=== PATIENT | male | born 1990 | race Two or more races ===

== ENCOUNTER 2016-06-05 12:13 | Inpatient (IN) | payer MEDICAID, OTHER ==
[2016-06-05] MEDS ORDERED: ONDANSETRON 4 MG/2ML 2 ML VIAL ONE ×2 (12:33→17:01)
[2016-06-05] MEDS ORDERED: HYDROMORPHONE HCL 1 MG/ML SYRINGE ONE (12:33)
[2016-06-05 12:54] LABS: ABSOLUTE NEUTROPHIL COUNT 17.5 K/mm3 (1.8-7.7); BASO # 0.1 K/mm3 (0.0-0.2); BASO % 0.3 % (0.2-1.0); EOS % 0.2 % (0.9-2.9); HEMATOCRIT 43.4 % (32.0-52.0); HEMOGLOBIN 14.7 gm/l (14.0-18.0); IMM NEUT # 0.1 K/mm3 (0-0.2); IMM NEUT% 0.5 % (0-1); LYMPH # 1.5 (1.0-4.8); LYMPH % 7.2 % (15-45); MEAN CELL VOLUME 88.4 fl (80.0-94.0); MEAN CORPUSCULAR HEMOGLOBIN 29.9 pg (27.0-31.0); MEAN CORPUSCULAR HGB CONC 33.9 g/dl (33.0-37.0); MEAN PLATELET VOLUME 8.7 fl (7.4-10.4); MONO # 0.9 (0.0-0.8); MONO % 4.3 % (4-12); NEUT % 87.5 % (43-75); PLATELET COUNT 290 K/mm3 (130-400); RED CELL DISTRIBUTION WIDTH 12.3 % (11.5-14.5)
[2016-06-05 13:16] LABS: ALB/GLOB RATIO 1.3 (>1.0); ALBUMIN 3.7 gm/dL (3.5-5.7); CALCIUM 8.8 mg/dL (8.6-10.3)
--- NOTE | 2016-06-05 13:28 | US ---
SCROTUM CONTENTS COMPARISON: None. HISTORY: Right scrotal pain and swelling. FINDINGS: Right testicle: Normal, 4.3 x 2.8 x 3.0 cm. Normal blood flow. Right epididymis: Normal, 9 x 8 x 8 mm. Normal blood flow. Right varicocele: None Right hydrocele: None. Right inguinal canal: Contains a loop of bowel which terminates in the upper scrotum. Left testicle: Normal, 3.8 x 2.1 x 2.9 cm. Normal blood flow. Left epididymis: Normal, 14 x 9 x 10 mm. Normal blood flow. Left varicocele: None Left hydrocele: None IMPRESSION: Right inguinal hernia containing a loop of intestine. Normal testes and epididymides. The report was sent to the emergency department electronic medical record system, 06/05/2016 at 13:30
[2016-06-05] MEDS ORDERED: HYDROMORPHONE HCL 0.5 MG/0.5 ML SYRINGE ONE (13:45)
[2016-06-05 13:56] LABS: BAND 9 % (0-10); BASOPHIL 0 % (0-1); EOSINOPHIL 0 % (1-3); LYMPHOCYTE 8 % (15-45); MONOCYTE 2 % (4-12); NEUTROPHILS 81 % (43-75); PLATELET ESTIMATE NORMAL (NORMAL); TOTAL CELLS COUNTED 100
[2016-06-05] MEDS ORDERED: CEFAZOLIN SODIUM 2 GRAM PREMIX 2 G in Premix (D5W) 100 ml 1 EACH IV PRN (14:16)
[2016-06-05] MEDS ORDERED: LACTATED RINGERS 1,000 ML ONE ×2 (14:18→16:37)
[2016-06-05] MEDS ORDERED: IOPAMIDOL 370 (76%) IV.SOLN 150 ML IV ONE (14:27)
[2016-06-05] MEDS ORDERED: FENTANYL 250 MCG/5 ML AMP ONE (14:47)
[2016-06-05] MEDS ORDERED: MIDAZOLAM HCL 1 MG/ML 2ML VIAL ONE (14:47)
[2016-06-05] MEDS ORDERED: BUPIVACAINE 0.5% W/EPI SDV 30 ML VIAL ONE (14:58)
[2016-06-05] MEDS ORDERED: LIDOCAINE 1% (PRES FREE) 30 ML VIAL ONE (14:59)
[2016-06-05] MEDS ORDERED: BUPIVACAINE 0.5% (PRES FREE) 30 ML VIAL ONE (15:09)
[2016-06-05] MEDS ORDERED: PROPOFOL 20 ML IV ONE (15:16)
[2016-06-05] MEDS ORDERED: ROCURONIUM BROMIDE 10 MG/ML DOSE IV ONE (15:16)
[2016-06-05 16:09] LABS: SPECIFIC GRAVITY 1.015 (1.001-1.030); URINE BILIRUBIN NEGATIVE (NEGATIVE); URINE BLOOD 4+ (NEGATIVE); URINE GLUCOSE (UA) NEGATIVE (NEGATIVE); URINE LEUKOCYTE ESTERASE 2+ (NEGATIVE); URINE NITRITE NEGATIVE (NEGATIVE); URINE PROTEIN TRACE (NEGATIVE); URINE UROBILINOGEN NORMAL (0-1 mg/dl)
[2016-06-05 16:13] LABS: URINE APPEARANCE SL CLOUDY; URINE COLOR YELLOW
[2016-06-05 16:19] LABS: URINE BACTERIA RARE; URINE EPITHELIAL CELLS 0-1 /hpf; URINE WBC 50-100 /hpf
[2016-06-05] MEDS ORDERED: CEFAZOLIN SODIUM 1,000 MG VIAL ONE (17:01)
[2016-06-05] MEDS ORDERED: DEXAMETHASONE SOD PHOS 4 MG/1 ML VIAL ONE (17:01)
[2016-06-05] MEDS ORDERED: HYDROMORPHONE HCL 1 MG/ML SYRINGE IV PRN (17:41)
[2016-06-05] MEDS ORDERED: FENTANYL 100 MCG/2 ML VIAL IV PRN (17:41)
[2016-06-05] MEDS ORDERED: PROMETHAZINE HCL 25 MG/ML VIAL IM PRN (17:41)
[2016-06-05] MEDS ORDERED: NALOXONE HCL 0.4 MG/ML VIAL IV PRN (17:41)
[2016-06-05] MEDS ORDERED: ATROPINE SULFATE 0.4 MG/1 ML VIAL IV PRN (17:41)
[2016-06-05] MEDS ORDERED: LACTATED RINGERS 1,000 ML IV SCH (17:45)
[2016-06-05] MEDS ORDERED: HYDROMORPHONE HCL 2 MG/ML SYRINGE ONE (17:50)
--- NOTE | 2016-06-05 18:47 | PCMBPN ---
Brief Post Op Note: Date of Procedure: 06/05/16 Preoperative Diagnosis: 1. Incarcerated right inguinal hernia Postoperative Diagnosis: 1. Right scrotal pain, possible torsion Procedure: Right inguinal hernia repair Surgeon: Karina Warner MD Assist:Candice Tidwell Anesthesia: General Findings: see dictation Condition: stable Complications: none IV Fluids: see anesthesia report Urine Output: not recorded Estimated Blood Loss: 5 mLs Tourniquet Time: N/A Specimens: N/A Implants: 3x6 prolene mesh cut to fit Drains: [N/A]
[2016-06-05] MEDS ORDERED: MENTHOL/CETYLPYRD 1 EACH LOZENGE PO PRN (18:53)
[2016-06-05] MEDS ORDERED: BLISTEX LIPSTICK 1 EACH TP PRN (18:53)
[2016-06-05] MEDS ORDERED: ONDANSETRON 4 MG/2ML 2 ML VIAL IV PRN (18:53)
--- NOTE | 2016-06-05 18:53 | PDOC1 ---
HPI: Date of Admission: 06/05/16 (originally seen at 1530) Chief Complaint: Right scrotal pain History of Present Illness: 25 y/o M with right scrotal pain and swelling since last night. He got up from sitting and he felt pain. Never had symptoms before. He complains of fever and chillls. No nausea/vomiting. After the pain started he went to bed and it woke him up at 3am and was much worse. He eventually came to the ED for evaluation. No other symptoms. PMH: healthy PSH: none Meds: none Allergies: NKDA SH: smokes tobacco, quit marijuana recently, denies EtOH use Family history: no known major illness - Review of Systems Denies Chest Pain, Denies Shortness of Breath, Denies Cough, Denies Sputum, Denies Nausea, Denies Vomiting, Denies Diarrhea, Denies Headache, Denies Other H&P Objective GS - Objective Laboratory Results - last 24 hr 06/05/16 06/05/16 12:40 15:57 WBC 20.0 H RBC 4.91 Hgb 14.7 Hct 43.4 MCV 88.4 MCH 29.9 MCHC 33.9 RDW 12.3 Plt Count 290 Neut % (Auto) 87.5 H Lymph % (Auto) 7.[address] [place] % (Auto) 4.3 Baso % (Auto) 0.3 Absolute Neuts (auto) 17.5 H Neutrophils % (Manual) 81 H Band Neutrophils % 9 Lymphocytes % (Manual) 8 L Monocytes % (Manual) 2 L Eosinophils % 0.2 L Eosinophils % (Manual) 0 L Basophils % 0 Platelet Estimate Normal Normal RBC Morphology Normal Sodium 132 L Potassium 3.7 Chloride 97 L Carbon Dioxide 29 Anion Gap 10 BUN 9 Creatinine 0.9 Estimated GFR 104 BUN/Creatinine Ratio 10 Glucose 156 H Calcium 8.8 Total Bilirubin 0.8 AST 13 ALT 15 Alkaline Phosphatase 88 Total Protein 6.5 Albumin 3.7 Globulin 2.8 Albumin/Globulin Ratio 1.3 Urine Color Yellow Urine Appearance Sl cloudy Urine pH 6.0 Ur Specific Rousseau 1.015 Urine Protein Trace Urine Glucose (UA) Negative Urine Ketones Negative Urine Blood 4+ Urine Nitrite Negative Urine Bilirubin Negative Urine Urobilinogen Normal Ur Leukocyte Esterase 2+ Urine RBC 2-5 Urine WBC 50-100 Ur Epithelial Cells 0-1 Urine Bacteria Rare % Immature Granulocyt 0.5 General: Alert, Oriented x3, Cooperative, No Acute Distress HEENT: Atraumatic, PERRLA, EOMI, Mucous membr. moist/pink Lungs: Clear to Auscultation Bilaterally, Normal Air Movement Cardiovascular: Regular Rate and Rhythm, Normal S1, Normal S2. negative: Murmur Abdomen: Soft, Non-Distended, Normal Bowel Sounds Genitourinary: Other (Swollen red right scrotum and swollen right testicle. Large right cord with obvious swelling/mass) Skin: Normal Color, Warm, Dry, Intact Psych/Mental Status: Anxious, Other (tearful) - Assessment/ Plan (1) Incarcerated right inguinal hernia Current Visit: Yes Status: Acute Priority: High Code: K40.30US shows flow to testicle and Bowel into scrotal sac Has had symptoms since last night. No need to attempt to reduce in the ED Will take urgently to surgery. - Procedure, Risks, Alternatives, Question PARQ: I discussed the procedure of Right inguinal hernia repair with possible bowel resection if compromised. We discussed risks including bleeding, infection, injury and possible need to resect bowel. I addressed the patient's concerns and questions. The patient expressed understanding and willingness to proceed.
[2016-06-05] MEDS ORDERED: PUMP TUBING ONE (19:34)
[2016-06-05] MEDS: LACTATED RINGERS 1,000 ML IV SCH (19:40)
[2016-06-05 19:43] VITALS: BMI 21.9
[2016-06-05] MEDS: HYDROMORPHONE HCL 1 MG/ML SYRINGE IV PRN ×2 (19:52→22:03)
--- NOTE | 2016-06-05 21:09 | OP ---
LINDSAY SOTO [id number] DATE OF : 1990 DATE OF SERVICE: 06/05/2016 PREPROCEDURE DIAGNOSIS: Right inguinal incarcerated hernia. POSTPROCEDURE DIAGNOSIS: Right groin pain, possible right testicular torsion. SURGEON: Dr. Karina Warner SPECIAL ORDER JEWELER: LEIGH Burr ANESTHESIA: General. FINDINGS: The cord structure was very dense and hard. It was difficult actually to identify the separate structures very well. It was though, however, too small for bowel to be in there and when dissecting through it, it was clear that there was no bowel or hernia sac within this structure. Pushing on the floor revealed a little bit of weakness, but nowhere where there was an actual defect where bowel could slip through and be stuck. On the internal ring, there was no defect around that either where bowel could slip through, it was fully encased with tissue surrounding it, so I do not believe that there was any way that there was a hernia at this location. Just because of the ultrasound, I placed mesh at that site to prevent any sort of recurrence in case I was missing something. Ultrasound was done after the repair and there was blood flow to the testicle. TECHNIQUE: The patient was brought back to the operating room and placed under general anesthesia. The lower abdomen and groin area was prepped and draped in sterile surgical fashion. Local anesthetic was placed in the dermis and subcutaneous tissue and as a block at the superior iliac spine. A 15-blade scalpel was used to make an oblique incision over the inguinal region just above pubic tubercle. Electrocautery was used to cut through the subcutaneous tissue down to the level of the fascia. At first, I thought I was in the space, but it was just a very thickened Jimmy's fascia layer, and then I noticed that there was clearly still external oblique underneath me, so then I opened the external oblique with a 15-blade scalpel and extended that with Metzenbaum scissors. The inguinal nerve was protected and pushed aside. Hemostats were placed around the cut ends of external oblique and the nerve was kept to one side of that to protect it from the dissection, and then the cord structures were from the floor and from the pubic tubercle and a Napavine was placed around it. The cord itself was in a tight bundle, about 1 cm in diameter. The cremasteric fibers were pulled apart. It was almost like everything was fused together, but I continued to tease things apart. It was clear there was no bowel within this, there were blood vessels though, and there was clearly the spermatic cord, it just did not want to separate that well. There was clearly no hernia sac though, and I continued to clear my way through it just to make sure that there was nothing that I was missing, but it was clear there was no bowel and no hernia sac in this. I continued looking around. I pressed in the indirect ring and I could not palpate a defect where my finger or even the tip of the finger could fit through. I felt like there was a fusion between the internal ring and the area of the cord, and there was nowhere bowel could fit through this. I felt the direct hernia spot. There was some laxity in the muscle here, but there was nothing where bowel would come through and get stuck at. I just felt that I could not figure-out how this hernia came through this spot, but because of what the ultrasound showed and because of the swelling in his scrotum and the redness, I felt like I had to put a mesh down, so I secured that to the muscle layer and along the inguinal ligament. Once that was secured in place, I irrigated the area, I placed the nerve back in the inguinal canal and I closed the external oblique, making sure I am not getting the nerve caught-up in it. I closed that with a running 2-0 Vicryl, then I closed Jimmy's layer with some interrupted 3-0 Vicryls, and then I closed the deep dermis with 3-0 Vicryl and closed the skin incision with a running 4-0 MONOCRYL. Steri-Strips were applied. Then we took the drapes down and I examined the scrotum. It looked like it was not as inflamed as preoperatively. Obviously the cord on this side was much thicker and hard compared to the other side and the testicle was much more swollen on the right side than the left, however, the redness of the scrotum was much improved. I got the ultrasound machine out and I could see blood flow going into and out of the testicle according to the ultrasound, and I looked at the other side and I compared the velocity at least grossly from one side to the other and it seemed to look the same, so I had the patient awakened and extubated and returned him to recovery in stable condition. All needle, instrument and sponge counts are correct.
[2016-06-06] MEDS: LACTATED RINGERS 1,000 ML IV SCH ×3 (02:15→19:16)
[2016-06-06] MEDS: HYDROMORPHONE HCL 1 MG/ML SYRINGE IV PRN ×7 (02:45→19:16)
[2016-06-06 05:48] LABS: HEMOGLOBIN 12.4 gm/l (14.0-18.0); MEAN CELL VOLUME 88.5 fl (80.0-94.0); MEAN CORPUSCULAR HEMOGLOBIN 29.7 pg (27.0-31.0); MEAN CORPUSCULAR HGB CONC 33.5 g/dl (33.0-37.0); RED CELL DISTRIBUTION WIDTH 12.1 % (11.5-14.5)
[2016-06-06 06:12] LABS: CALCIUM 8.3 mg/dL (8.6-10.3)
--- NOTE | 2016-06-06 11:40 | CT ---
Exam Type: ABD/PELVIS W/ CON Date and Time: 06/06/2016 10:46 AM Clinical information: Right inguinal hernia status post surgery with fever, testicular pain and swelling. Comparison: 06/22/2012. Procedure: Imaging device: [employer] [employer] [address] scanner 1 mm axial images were obtained through the abdomen and pelvis. Stacked reconstructed 3, 4 and 5 mm images were photographed in the axial coronal and sagittal planes. No oral contrast was utilized for this examination. 100 ml of Isovue-370 was injected intravenously. Exam: with intravenous contrast. FINDINGS: Lung bases: Minimal bibasilar atelectasis is present. Liver: the liver is homogeneous with no discrete abnormality visualized. No definite findings of biliary dilatation are observed. Spleen: The spleen is homogeneous and does not appear to be enlarged. Gallbladder: Normal without enlargement or evidence of adjacent inflammatory changes. Pancreas: Normal without enlargement or evidence of adjacent inflammatory changes. Adrenal glands: Normal without enlargement or evidence of adjacent inflammatory changes. Abdominal aorta: The aorta is of normal caliber and appears to be without significant atherosclerotic disease. Kidneys: The kidneys appear to be symmetric in size with no perinephric inflammatory changes are identified. No current findings of hydronephrosis are seen. Bowel structures: The visualized bowel appear to be of normal caliber with moderate gaseous distention of the colon an indwelling stool material. Small foci of free air are seen within the right lower quadrant deep to the abdominal wall musculature at the level of the right inguinal canal. A small amount of free fluid suggested within the deep pelvis. Appendix: Not well visualized. Bladder: Decompressed due to an indwelling Singleton catheter. Hernia: A discrete hernia is not visualized. There are suspected surgical changes seen within the right inguinal region. There is asymmetric soft tissue prominence and infiltration of subcutaneous tissues at the origin as well as along the course of the right inguinal canal. Foci of free air is seen within the subcutaneous tissues likely due to recent surgery. There is asymmetric thickening of the spermatic cord and contents of the right inguinal canal compared to the left. The findings are likely reflective of postsurgical change with no focal fluid collection or evidence of abscess formation observed. There is the suggestion of a right testicular hydrocele. Adenopathy: No significant enlarged adenopathy is visualized. Osseous structures: No discrete osseous abnormalities are identified. Pelvic structures: No discrete pelvic abnormalities are visualized in this examination. IMPRESSION: 1. Asymmetric soft tissue prominence and infiltration of the subcutaneous tissues within the right inguinal region. There is evidence of free air within the subcutaneous tissues as well as within the right lower quadrant at the level of the origin of the right inguinal canal. Asymmetric thickening of the spermatic cord and contents of the right inguinal canal are also observed compared to the left. These findings likely reflect recent surgery with no discrete fluid collection or abscess visualized. 2. Findings suggestive of a testicular hydrocele. 3. Moderate distention of the large bowel structures with moderate stool throughout the colon. No evidence of obstruction is visualized. 4. A small amount of free fluid within the deep pelvis. 5. An indwelling Singleton catheter within the decompressed bladder. 6. Nonvisualization of the appendix.
--- NOTE | 2016-06-06 13:36 | PDOC43 ---
- Subjective Subjective: Reports Flatus, Denies Pain Tolerable (pain still horrible this morning at testicle) - Objective Vital Signs Temperature 98.0 F 06/06/16 13:18 Pulse Rate 84 06/06/16 13:18 Respiratory Rate 20 06/06/16 13:18 Blood Pressure 110/64 06/06/16 13:18 O2 Saturation by Pulse Oximetry 96 06/06/16 13:18 Oxygen Delivery Method Room Air Oxygen Flow Rate 0 Laboratory 06/06/16 05:30 06/06/16 05:30 06/06/16 05:30 RBC 4.18 L Anion Gap 7 L BUN 6 L Estimated GFR 139 H Calcium 8.3 L Active Medication Orders Category Date Time Status Hydromorphone HCl [Dilaudid] Med 06/05/16 18:53 Active 0.5 - 1 mg IV Q1H PRN Lactated Ringers 1,000 ml Med 06/05/16 19:00 Active IV 125 mls/hr Levofloxacin 500 mg/D5w 100 ml [Levaquin IV 500 mg] 500 Med 06/06/16 13:45 Active mg Premix (D5W) 100 ml 1 each IV Q24H Lip [place] [Blistex] Med 06/05/16 18:53 Active 1 each TP PRN PRN Menthol/Cetylpyridinium [Cepacol] Med 06/05/16 18:53 Active 1 each PO PRN PRN Ondansetron 4 mg/2ml Vial [Zofran] Med 06/05/16 18:53 Active 4 mg IV Q4H PRN Oxycodone HCl/Acetaminophen [Percocet 5/325] Med 06/05/16 18:53 Active 1 - 2 tab PO Q4H PRN Sodium Chloride 0.9% Flush [Normal Saline 10ml Flush] Med 06/05/16 18:53 Active 10 - 50 ml IV PRN PRN Sodium Chloride 0.9% Flush [Normal Saline 10ml Flush] Med 06/06/16 01:00 Active 10 ml IV Q8HR Intake and Output 06/04/16 06/05/16 06/06/16 23:59 23:59 23:59 Intake Total 2700 1860 Output Total 180 1500 Balance 2520 360 General: Alert, Oriented x3, Cooperative, No Acute Distress HEENT: Atraumatic, PERRLA, EOMI, Mucous membr. moist/pink Lungs: Clear to Auscultation Bilaterally, Normal Air Movement Cardiovascular: Regular Rate and Rhythm, Normal S1, Normal S2, No Murmur Abdomen: Soft, Non-Distended, Normal Bowel Sounds, No Tenderness Skin: Normal Color, Warm, Dry, Intact, No Rash Psych/Mental Status: Normal Affect, Normal Mood - Assessment/ Plan (1) Incarcerated right inguinal hernia Status: AcuteAssessment/ Plan: POD#1 Still quite painful. When awake is tachycardic WBC increasing CT scan today->discussed with Dr. Khan will start on levaquin for suspected infection recheck labs in the am
[2016-06-06] MEDS ORDERED: LEVOFLOXACIN 500 MG/D5W 100 ML 500 MG in Premix (D5W) 100 ml 1 EACH IV SCH (13:45)
[2016-06-06 14:54] LABS: CHLAMYDIA BD Positive (Negative); N.GONORRHOEAE BD Positive (Negative); SOURCE Urine (())
[2016-06-06] MEDS: OXYCODONE/ACETAMINOPHEN 5/325 MG TABLET PO PRN ×3 (15:25→23:55)
[2016-06-06] MEDS ORDERED: DIPHENHYDRAMINE HCL 50 MG/1 ML VIAL IV PRN (18:55)
[2016-06-07] MEDS: LACTATED RINGERS 1,000 ML IV SCH ×2 (03:25→12:24)
[2016-06-07] MEDS: OXYCODONE/ACETAMINOPHEN 5/325 MG TABLET PO PRN ×2 (05:56→12:08)
[2016-06-07 06:29] LABS: HEMATOCRIT 34.5 % (32.0-52.0); HEMOGLOBIN 11.6 gm/l (14.0-18.0); MEAN CELL VOLUME 89.6 fl (80.0-94.0); MEAN CORPUSCULAR HEMOGLOBIN 30.1 pg (27.0-31.0); MEAN CORPUSCULAR HGB CONC 33.6 g/dl (33.0-37.0); RED CELL DISTRIBUTION WIDTH 12.2 % (11.5-14.5)
--- NOTE | 2016-06-07 09:37 | PDOC5 ---
ADMIT DATE: 06/05/16 DISCHARGE DATE: 06/07/16 ADMISSION DIAGNOSES: Incarcerated Right inguinal hernia PROCEDURES PERFORMED THIS HOSPITALIZATION: Right inguinal hernia repair CONSULTATIONS: none HOSPITAL COURSE: This is a 25 year old M with severe scrotal/testicular pain on admission that started after getting up from a sitting position. He had an ultrasound in the ED that showed bowel in his inguinal canal. He was taken to the OR and no bowel was seen in the inguinal canal or much of a hernia defect. a repair was done and a US of the testicle to make sure there was good blood flow. The redness didn't seem as pronounced after surgery so he was sent to the floor. The next morning his WBC was more elevated and he was still in much pain. A CT scan was done and nothing of note could be seen. His Urine from the ED was positive for UTI so this was diagnosed as a severe infection/ prostatitis traveling up his right Vas. So he was started on Levaquin and by the next day was feeling much better. - Objective Vital Signs Temperature 98.0 F 06/07/16 08:30 Pulse Rate 80 06/07/16 08:30 Respiratory Rate 18 06/07/16 08:30 Blood Pressure 120/69 06/07/16 08:30 O2 Saturation by Pulse Oximetry 98 06/07/16 08:30 Oxygen Delivery Method Room Air Oxygen Flow Rate 0 General: Alert, Oriented x3, Cooperative, No Acute Distress HEENT: Atraumatic, PERRLA, EOMI, Mucous membr. moist/pink Lungs: Clear to Auscultation Bilaterally, Normal Air Movement Cardiovascular: Regular Rate and Rhythm, Normal S1, Normal S2, No Murmur Abdomen: Soft, Non-Distended, Normal Bowel Sounds, No Tenderness Genitourinary: Other (swelling and redness decreased) Psych/Mental Status: Normal Affect, Normal Mood - Discharge Diagnosis (1) Incarcerated right inguinal hernia Status: AcuteAssessment/Plan: POD#2 much improved will send home on 2 week course with levaquin (2) Prostatitis, acute Status: AcuteAssessment/Plan: Continue abx for 2 week course and f/u with PCP - Discharge Plan Condition: Good Disposition: Home Forms: Discharge Instructions Prescriptions: Oxycodone HCl/Acetaminophen [PERCOCET 5/325 MG TABLET (SHF)] 1 - 2 tab PO Q4H PRN #60 tab PRN Reason: Pain Follow-Up: Karina Warner MD [Family Provider] - In 2 weeks
[2016-06-07 13:56] VITALS: BP 124/82
== END 2016-06-07 13:10 | disposition home or self-care (01) | DRG 351 ==
LOC: ED 12:13 → SDC 14:26 → OR 14:26 → SDC 18:52 → MS 18:53
PROVIDERS: ADMIT Surgery; ATTEND Surgery
PROC: 0YU50JZ Supplement Right Inguinal Region with Synthetic Substitute, Open Approach (ICD-10-PCS; principal; 2016-06-05)
PROC: 3E0M05Z Introduction of Adhesion Barrier into Peritoneal Cavity, Open Approach (ICD-10-PCS; 2016-06-05)
DX: K40.30 Unilateral inguinal hernia, with obstruction, without gangrene, not specified as recurrent (principal); N39.0 Urinary tract infection, site not specified; N41.0 Acute prostatitis; B96.89 Other specified bacterial agents as the cause of diseases classified elsewhere; N43.2 Other hydrocele

== ENCOUNTER 2016-06-08 06:38 | Emergency (ER) | payer MEDICAID ==
[2016-06-08] MEDS ORDERED: ONDANSETRON 4 MG ODT TAB ONE (07:35)
[2016-06-08] MEDS ORDERED: KETOROLAC TROMETHAMINE 60 MG/2 ML VIAL ONE (07:35)
== END 2016-06-08 08:05 | disposition home or self-care (01) ==
LOC: ED 06:38
DX: G89.18 Other acute postprocedural pain (principal); R10.9 Unspecified abdominal pain; J45.909 Unspecified asthma, uncomplicated; F17.210 Nicotine dependence, cigarettes, uncomplicated; Z98.890 Other specified postprocedural states

== ENCOUNTER 2016-06-09 20:57 | Emergency (ER) | payer MEDICAID | END 2016-06-09 22:38 | disposition home or self-care (01) | LOC: ED 20:57 | DX: Z53.21 Procedure and treatment not carried out due to patient leaving prior to being seen by health care provider (principal) ==